=== PATIENT | male | born 1970 | race Caucasian/White ===

== ENCOUNTER 2024-08-03 15:28 | Emergency (ER) | payer SELFPAY ==
[2024-08-03] VITALS (22 sets, daily range): BP systolic 129–183; BP diastolic 96–143; PULSE 71–121; RESP 11–42; TEMP 36.4–36.6; O2SAT 86–100
--- NOTE | ~2024-08-03 | XR_ITS ---
XR chest 1V portable 08/03/2024 16:13 Indication: Shortness of breath Procedure: AP portable chest Comparison: No prior studies for comparison. Findings: Cardiomegaly. Pulmonary vascular indistinctness consistent with interstitial edema. No sign ificant effusion or pneumothorax. No acute osseous abnormality. Impression: 1: Mild interstitial edema. Reviewed, dictated and finalized at location B. ING CARRIER Impression: 1: Mild interstitial edema.
--- NOTE | ~2024-08-03 | CT_ITS ---
EXAMINATION: CTA chest PE protocol DATE: 08/03/2024 18:46 DATA REPORTING ANALYST INDICATION: Shortness of breath with elevated d-dimer TECHNIQUE: Computed tomographic angiography (CTA) of the chest was performed with 100 mL Omnipaque-35 0 intravenous contrast. The dose-length product was 571.75 mGy-cm. Maximum intensity projection 3D-re constructions of the aorta and other arteries were constructed by the technologist on a separate work station. COMPARISON: None. FINDINGS: No filling defects within the main or proximal pulmonary arteries. The thoracic aorta is of normal caliber (nonaneurysmal) and without calcified dissection. Moderate bilateral pleural effusions with adjacent compressive atelectasis. The heart is enlarged, without pericardial effusion. No significant mediastinal lymphadenopathy is identified. No acute fractures within the thoracic spine. No lytic or blastic lesions identified. IMPRESSION: No pulmonary embolus. No aortic dissection. Moderate bilateral pleural effusions with adjacent compressive atelectasis. Reviewed, dictated and finalized at location A. REPORTING ANALYST
--- NOTE | 2024-08-03 15:48 | ED.GENADULT ---
HPI - General Adult General Chief complaint: Shortness of Breath/Dyspnea Stated complaint: SENT BY PMD Time Seen by Provider: 08/03/24 15:48 Source: patient Mode of arrival: ambulatory Limitations: no limitations History of Present Illness HPI narrative: 54-year-old white male on complains of shortness of breath. he has been short of breath for the last 4-6 days it is worse today. He started having a cough today without any sputum says he is more short of breath when he is laying on his stomach or laying supine denies any chest pain he has had swelling was lower extremities according to significant other. Denies any rash or itching bleeding or bruising lumps or bumps dizziness or lightheadedness denies any back pain or abdominal pain. He said he used THC 2 days ago but denies any other illicit drug use drinks a few alcoholic drinks a week. Does not smoke. He is walking talking seeing and hearing without any weakness or numbness or any other complaints. Surgeries tendon surgery Allergies Darvocet Medications none Related Data Allergies Allergy/AdvReac Type Severity Reaction Status Date / Time acetaminophen (From Allergy Unknown Verified 08/03/24 15:46 Darvocet-N) propoxyphene (From Allergy Unknown Verified 08/03/24 15:46 Darvocet-N) Review of Systems Review of Systems: All systems reviewed & are unremarkable except as noted in HPI and below Exam Narrative: ?White male patient with no apparent distress.? Head normocephalic, atraumatic.? Eyes conjunctiva pink sclera nonicteric.? Extraocular movements are intact.? Ears externally normal.? Oropharynx is clear with moist mucous membranes without exudates.? Neck is supple nontender no lymphadenopathy.? Back is nontender.? Lungs are clear.? Heart is regular rate and rhythm without murmurs gallops or rubs.? Chest wall nontender. Abdomen is soft and nontender no hepatosplenomegaly or masses no CVA tenderness no abdominal bruits.? Extremities no cyanosis or clubbing. Plus one edema of his lower extremities.? Skin is warm and dry without rashes or lesions. His abdomen has a zrai complexion and blanches with pressure.? Neurological patient is alert and oriented x4.? Motor and sensory grossly intact.? Gait is normal. Course Vital Signs Vital signs: Vital Signs Pulse Rate 115 H 08/03/24 15:28 Oxygen Delivery Room Air 08/03/24 15:28 Temperature 36.6 C 08/03/24 15:37 Pulse Rate 97 08/03/24 19:33 Respiratory Rate 14 08/03/24 19:17 Blood Pressure 155/123 H 08/03/24 19:37 Pulse Oximetry 92 08/03/24 19:37 Oxygen Delivery Room Air 08/03/24 15:37 Medical Decision Making MDM Narrative Medical decision making narrative: ?Patient placed in room: Two with his significant other ? History and physical was performed. chest x-ray mild interstitial edema per radiologist Troponin CBC COVID flu and RSV lactic acid alcohol level were normal BNP 6426 BUN 25 osmolality 269 magnesium 1.7 AST 44 ALT 75 Osmo to 96 albumin 3.3 the rest of CMP was normal D-dimer was 1.5, urine drug screen positive for THC and amphetamines CT PE study per radiology showed: No pulmonary embolus. No aortic dissection. Moderate bilateral pleural effusions with adjacent compressive atelectasis. Independent Historian: significant other External Source Review: Differential Dx includes but not limited to: methamphetamine abuse pneumonia PE his heart failure anemia substance abuse alcoholism COVID flu RSV Medications were Reviewed: patient is not taking medicine the last year he is post be taking lisinopril for blood pressure but has seen Over year Medications given: Lasix 40 mg IV DuoNeb treatment. ( patient put out 3400 cc of urine )Patient feels much better. Says he is not short of breath he ambulated up and down the hallway fine his last blood pressure was 151/98 and heart rate was 97. Independently Interpreted by me: EKG shows sinus tachycardia at a rate of 106 right axis deviation nonspecific T-wave abnormality occasional PVC impression abnormal EKG as independently interpreted by me. Bedside ultrasound showed cardiac contractility is good no pericardial effusion. Shared decision Making: Evaluation was discussed all questions were asked and answered patient agreed with the plan. Social Situation Impacting Patients Care: methamphetamine abuse Discussed with Dr. HUYNH DIAGNOSIS: Congestive heart failure, methamphetamine abuse DISPOSITION : discharge home CONDITION AT DISCHARGE: stable Vital Signs Vital Signs: Vital Signs Pulse Rate 115 H 08/03/24 15:28 Oxygen Delivery Room Air 08/03/24 15:28 Temperature 36.6 C 08/03/24 15:37 Pulse Rate 97 08/03/24 19:33 Respiratory Rate 14 08/03/24 19:17 Blood Pressure 155/123 H 08/03/24 19:37 Pulse Oximetry 92 08/03/24 19:37 Oxygen Delivery Room Air 08/03/24 15:37 Lab Data 08/03/24 16:17 08/03/24 16:17 Labs: Lab Results 08/03/24 08/03/24 08/03/24 Range/Units 16:03 16:04 16:17 WBC 10.5 (4.8-10.8) K/mm3 RBC 5.51 (4.70-6.10) M/mm3 Hgb 15.9 (14.0-18.0) g/dL Hct 47.7 (40.0-54.0) % MCV 86.6 (78.0-102.0) fL MCH 28.9 (27.0-31.0) pg MCHC 33.3 (32-36) g/dL RDW 14.7 H (11.6-14.4) % Plt Count 285 (150-420) K/mm3 MPV 10.5 (8.7-11.0) fl PT 12.6 H (9.50-12.1) Seconds INR 1.2 APTT 26.5 (23.9-30.70) Sec D-Dimer 1.50 H* (0.19-0.50) mg/L Sodium 139 (136-145) mmol/L Potassium 3.6 (3.5-5.1) mmol/L Chloride 105 (98-108) mmol/L Carbon Dioxide 24 (21-32) mmol/L Anion Gap 10 (4-12) mmol/L BUN 25 H (7-18) mg/dL Creatinine 1.09 (0.70-1.30) mg/dL Estim Creat Clear Calc 75 ml/min Estimated GFR > 60 (59 - ) Glucose 162 H (70-99) mg/dL Calculated Osmolality 296 H (285-295) mOsm/kg Lactic Acid 1.1 (0.4-2.0) mmol/L Calcium 8.7 (8.5-10.1) mg/dL Magnesium 1.7 L (1.8-2.4) mg/dL Total Bilirubin 0.9 (0.00-1.00) mg/dL AST 44 H (15-37) U/L ALT 75 H (16-63) U/L Alkaline Phosphatase 77 (46-116) U/L Troponin I 48.8 (0.00-60.4) ng/L NT-Pro-B Natriuret Pep 6426 H (0-125) pg/mL Total Protein 6.7 (6.4-8.2) g/dL Albumin 3.3 L (3.4-5.0) g/dL Urine Color Yellow (Yellow) Urine Appearance Clear (Clear) Urine pH 6.0 (5.0-8.0) Ur Specific [place] 1.025 H (1.010-1.020) Urine Protein 3+ H (Negative) Urine Glucose (UA) Negative (Negative) Urine Ketones Negative (Negative) Ur Blood (Man) Negative (Negative) Urine Nitrate Negative (Negative) Urine Bilirubin Negative (Negative) Urine Urobilinogen 0.2 (0.2-1.0) mg/dL Leukocyte Esterase Rfl Negative (Negative) H[place]OL[place]O/UL Urine RBC 0-2 (0-2) /hpf Urine WBC 0-3 (0-3) /hpf Ur Squamous Epith Cells Rare (Few) /hpf Urine Bacteria Rare (None) /hpf Urine Opiates Screen Negative (Negative) Urine Methadone Screen Negative (Negative) Ur Barbiturates Screen Negative (Negative) Ur Phencyclidine Scrn Negative (Negative) Ur Amphetamine Screen Positive A (Negative) U Benzodiazepines Scrn Negative (Negative) Urine Cocaine Screen Negative (Negative) U Cannabinoids Screen Positive A (Negative) Ethyl Alcohol 3 (0-6) mg/dL Influenza A (RT-PCR) Negative (Negative) Influenza B (RT-PCR) Negative (Negative) RSV (RT-PCR) Negative (Negative) SARS-CoV-2 RNA (RT-PCR) Negative (Negative) 08/03/24 Range/Units 18:38 WBC (4.8-10.8) K/mm3 RBC (4.70-6.10) M/mm3 Hgb (14.0-18.0) g/dL Hct (40.0-54.0) % MCV (78.0-102.0) fL MCH (27.0-31.0) pg MCHC (32-36) g/dL RDW (11.6-14.4) % Plt Count (150-420) K/mm3 MPV (8.7-11.0) fl PT (9.50-12.1) Seconds INR APTT (23.9-30.70) Sec D-Dimer (0.19-0.50) mg/L Sodium (136-145) mmol/L Potassium (3.5-5.1) mmol/L Chloride (98-108) mmol/L Carbon Dioxide (21-32) mmol/L Anion Gap (4-12) mmol/L BUN (7-18) mg/dL Creatinine (0.70-1.30) mg/dL Estim Creat Clear Calc ml/min Estimated GFR (59 - ) Glucose (70-99) mg/dL Calculated Osmolality (285-295) mOsm/kg Lactic Acid (0.4-2.0) mmol/L Calcium (8.5-10.1) mg/dL Magnesium (1.8-2.4) mg/dL Total Bilirubin (0.00-1.00) mg/dL AST (15-37) U/L ALT (16-63) U/L Alkaline Phosphatase (46-116) U/L Troponin I 45.9 (0.00-60.4) ng/L NT-Pro-B Natriuret Pep (0-125) pg/mL Total Protein (6.4-8.2) g/dL Albumin (3.4-5.0) g/dL Urine Color (Yellow) Urine Appearance (Clear) Urine pH (5.0-8.0) Ur Specific [place] (1.010-1.020) Urine Protein (Negative) Urine Glucose (UA) (Negative) Urine Ketones (Negative) Ur Blood (Man) (Negative) Urine Nitrate (Negative) Urine Bilirubin (Negative) Urine Urobilinogen (0.2-1.0) mg/dL Leukocyte Esterase Rfl (Negative) HIPOLITO/UL Urine RBC (0-2) /hpf Urine WBC (0-3) /hpf Ur Squamous Epith Cells (Few) /hpf Urine Bacteria (None) /hpf Urine Opiates Screen (Negative) Urine Methadone Screen (Negative) Ur Barbiturates Screen (Negative) Ur Phencyclidine Scrn (Negative) Ur Amphetamine Screen (Negative) U Benzodiazepines Scrn (Negative) Urine Cocaine Screen (Negative) U Cannabinoids Screen (Negative) Ethyl Alcohol (0-6) mg/dL Influenza A (RT-PCR) (Negative) Influenza B (RT-PCR) (Negative) RSV (RT-PCR) (Negative) SARS-CoV-2 RNA (RT-PCR) (Negative) Discharge Plan Discharge Clinical Impression: Methamphetamine abuse, Hypertension, uncontrolled Congestive heart failure Qualifiers: Heart failure type: unspecified Heart failure chronicity: unspecified Qualified Code(s): I50.9 - Heart failure, unspecified Patient Disposition: Home, Self-Care Condition: Stable Instructions: Heart Failure (ED), Methamphetamine Use Disorder (ED) Additional Instructions: stop using Methamphetamine. Follow-up with your primary care provider tomorrow. Return if you get worse or develops any new symptoms. Avoid salt and salty foods. Take Lasix 20 mg daily and K-Dur 20 mEq daily follow-up with your primary care provider in the next 1-7 days. Return if you get worse or develops any new symptoms weigh yourself daily. Patient Language: Surinamese Prescriptions: New furosemide [Lasix] 20 mg tablet 20 mg PO DAILY Qty: 7 0RF potassium chloride 20 mEq tablet,ER particles/crystals 20 meq PO DAILY Qty: 7 0RF Follow-up/Referrals: Ada,MD Donnie [Primary Care Provider] - Time of Disposition: 19:56
--- NOTE | 2024-08-03 15:55 | ECG_ITS ---
Test Date: 2024-08-03 15:51:41 Measurements Intervals [place] Rate: 106 P: 65 CO: 152 QRS: 92 QRSD: 97 T: 86 QT: 414 QTc: 551 Interpretive Statements SINUS TACHYCARDIA BORDERLINE RIGHT AXIS DEVIATION [QRS AXIS > 90] NONSPECIFIC T-WAVE ABNORMALITY No previous ECG available for comparison Electronically Signed On 08-03-2024 17:45:21 SECURITY SOFTWARE ENGINEER by Audelia Lowery M.D.
[2024-08-03 16:22] LABS: Hematocrit 47.7 % (40.0-54.0); Hemoglobin 15.9 g/dL (14.0-18.0); Mean Corpuscular HGB Conc 33.3 g/dL (32-36); Mean Corpuscular Hemoglobin 28.9 pg (27.0-31.0); Mean Corpuscular Volume 86.6 fL (78.0-102.0); Mean Platelet Volume 10.5 fl (8.7-11.0); Platelet Count Result 285 K/mm3 (150-420); Red Blood Count 5.51 M/mm3 (4.70-6.10); Red Cell Distribution Width 14.7 % (11.6-14.4); White Blood Count 10.5 K/mm3 (4.8-10.8)
[2024-08-03 16:37] LABS: Add Urine Microscopic? YES; Appearance Urine Clear (Clear); Bilirubin Urine Negative (Negative); Blood Urine Negative (Negative); Color Urine Yellow (Yellow); Glucose Urine UA Negative (Negative); Ketones Urine Negative (Negative); Leukocyte Esterase Ur Negative LEU/UL (Negative); Nitrate Urine Negative (Negative); Protein Urine 3+ (Negative); Specific Grav Ur 1.025 (1.010-1.020); Urobilinogen Urine 0.2 mg/dL (0.2-1.0)
[2024-08-03 16:39] LABS: INR 1.2; Partial Thromboplastin Time 26.5 Sec (23.9-30.70); Prothrombin Time 12.6 Seconds (9.50-12.1)
[2024-08-03 16:41] LABS: Lactic Acid Reflex 1.1 mmol/L (0.4-2.0)
[2024-08-03] MEDS: FUROSEMIDE INJ 40 MG/4 ML VIAL IV PUSH (16:46)
[2024-08-03 16:47] LABS: Alanine Aminotransferase 75 U/L (16-63); Albumin Level 3.3 g/dL (3.4-5.0); Alkaline Phosphatase 77 U/L (46-116); Anion Gap 10 mmol/L (4-12); Aspartate Amino Transferase 44 U/L (15-37); Bilirubin,Total 0.9 mg/dL (0.00-1.00); Blood Urea Nitrogen 25 mg/dL (7-18); Calcium 8.7 mg/dL (8.5-10.1); Carbon Dioxide 24 mmol/L (21-32); Chloride 105 mmol/L (98-108); Estimated CRCL calculation 75 ml/min; Estimated Glomerular Filt Rate > 60; Ethanol 3 mg/dL (0-6); Glucose 162 mg/dL (70-99); Osmolality Calculated 296 mOsm/kg (285-295); Potassium 3.6 mmol/L (3.5-5.1); Sodium 139 mmol/L (136-145); Total Protein 6.7 g/dL (6.4-8.2)
[2024-08-03 16:48] LABS: Bacteria Urine Rare /hpf; RBC Urine 0-2 /hpf (0-2); Squamous Epithelial Cell Urine Rare /hpf (Few); WBC Urine 0-3 /hpf (0-3)
[2024-08-03 16:48] LABS: Amphetamine Screen Urine Positive (Negative); Barbiturate Screen Urine Negative (Negative); Benzodiazepines Screen Urine Negative (Negative); Cannabinoid Screen Urine Positive (Negative); Cocaine Screen Urine Negative (Negative); Methadone Screen Urine Negative (Negative); Opiate Screen Urine Negative (Negative); Phencyclidine Screen Urine Negative (Negative)
[2024-08-03 16:52] LABS: Magnesium 1.7 mg/dL (1.8-2.4); Troponin I 48.8 ng/L (0.00-60.4)
[2024-08-03 16:53] LABS: NT Pro B Type Natriuretic Pept 6426 pg/mL (0-125)
[2024-08-03 17:00] LABS: SARS-CoV-2 RNA PCR Negative (Negative)
[2024-08-03 17:03] LABS: Influenza A QL RT-PCR Negative (Negative); Influenza B QL RT-PCR Negative (Negative); RSV RNA, RT-PCR Negative (Negative)
[2024-08-03] MEDS: IPRATROPIUM 0.5 MG/ALBUTEROL SULFATE 2.5 MG AMPUL.NEB 3 ML INHALATION (17:48)
--- NOTE | 2024-08-03 18:00 | PC.NURSE ---
PT HAS RETURNED FROM CT AND TOLERATED A BREATHING TX WELL. SIG OTHER AT BEDSIDE. PT IS UP TO BEDSIDE USING URINAL AT THIS TIME. PT CONTINUES TO BE EXERTIONALLY SOB. PT IS AWAITING RESULTS AT THIS TIME. WILL CONTINUE TO MONITOR.
--- NOTE | 2024-08-03 18:25 | PC.NURSE ---
ERP AT BEDSIDE. PT IS TO HAVE REPEAT TROPONIN DRAWN. PT IS AWAITING CT RESULTS. SIG OTHER AT BEDSIDE. ERP IS AWARE OF VS, NO NEW ORDERS AT THIS TIME. WILL CONTINUE TO MONITOR.
[2024-08-03 18:58] LABS: Troponin I 45.9 ng/L (0.00-60.4)
--- NOTE | 2024-08-03 19:50 | PC.NURSE ---
ERP aware of blood pressure. No new orders at this time.
== END 2024-08-03 20:10 | disposition home or self-care (01) ==
PROVIDERS: Emergency Provider Emergency Medicine; PCP Family Medicine
DX: F15.10 Other stimulant abuse, uncomplicated (principal); I11.0 Hypertensive heart disease with heart failure; I50.9 Heart failure, unspecified; Z20.822 Contact with and (suspected) exposure to COVID-19
CPT/HCPCS: 36415; 71045; 71275; 80053; 80307; 81001; 82077; 83605; 83735; 83880; 84484; 85027; 85380; 85610; 85730; 87637; 93005; 96374; 99284; J1940; Q9967

== ENCOUNTER 2024-08-29 23:50 | Emergency (ER) | payer SELFPAY ==
--- NOTE | ~2024-08-29 | CT_ITS ---
Clinical Indication: Shortness of breath CT Scan of the Chest with Contrast: Technique: Contiguous sections were acquired throughout the chest after intravenous administration of 100 cc of Omnipaque 350. Dose reduction technique was used on this scan by utilizing automated expos ure control and iterative reconstruction technique. The dose-length product (DLP) was 754.46 mGy-cm. COMPARISON: 08/03/2024 Findings: There is no evidence of any significant mediastinal, hilar or axillary lymphadenopathy. There is no f illing defect in the pulmonary arterial tree to suggest pulmonary embolus. There is no evidence of ao rtic aneurysm. No pericardial effusion. Moderate bilateral pleural effusions are present, right greater than left. Probable minimal interstit ial pulmonary edema. Images through the upper abdomen reveal no abnormalities. Impression: No evidence of pulmonary embolus, aortic dissection, or aortic aneurysm. Moderate bilateral pleural effusions with minimal interstitial edema. Reviewed, dictated and finalized at [facility]. [facility] Impression: No evidence of pulmonary embolus, aortic dissection, or aortic aneurysm. Moderate bilateral pleural effusions with minimal interstitial edema.
--- NOTE | ~2024-08-29 | XR_ITS ---
Portable chest x-ray Comparison: 08/03/2024 Clinical History: Shortness of breath Findings: There are minimal pleural effusions and minimal central congestive change. Cardiomediasti nal silhouette is stable. Bones and soft tissues are unremarkable. Impression: Minimal pleural effusions and minimal central congestive change. Stable cardiomegaly. Reviewed, dictated and finalized at [facility]. 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 Stable cardiomegaly.
[2024-08-29 23:50] VITALS: PULSE 101; O2SAT 84
--- OUTSIDE RECORDS SUMMARY | 2024-08-29 23:52 | XMS_ITS | Clinical Summary ---
Author Organization [facility] Address [address] [place] [address]. [address] [address] Care Team Providers Care Senior Sales Operations Manager Name Role Phone Unavailable Primary Care Provider Unavailabl e Social History Tobacco Use Types Packs/Day Years Used Date Smoking Tobacco: Never Assessed Sex and Gender Information Value Date Recorded Sex Assigned at Not on file Legal Sex Male 8:57 PM CDT Gender Identity Not on file Sexual Orientation Not on file Plan of Treatment Health Maintenance Due Date Last Done Comments Colorectal Cancer Screening Colonoscopy (10 Years) 1968 Annual Physical 02/09/1971 Hepatitis C 02/09/1986 DTaP, Tdap and Td Vaccines ( 1 - Tdap) 02/09/1987 Hepatitis B Vaccines (1 of 3 - 19+ 3-dose series) 02/09/1987 Zoster Vaccines (1 of 2) 02/09/2018 COVID-19 Vaccine (2023-2 5 season) 2024 Influenza Adult (#1) 2024 Meningococcal B Vaccine Aged Out No l onger eligible based on patient's age to complete this topic Meningococcal Vaccine Aged Out No antonietta christopher eligible based on patient's age to complete this topic Pneumococcal Vaccine: Pediat rics (0 to 5 Years) and At-Risk Patients (6 to 64 Years) Aged Out No longer eligible b ased on patient's age to complete this topic RSV Immunizations Under 20 Months Aged Out No longer eligible based on patient's age to complete this topic
[2024-08-29 23:54] VITALS: PULSE 111; RESP 22; O2SAT 88
[2024-08-29 23:55] VITALS: BP 180/132; PULSE 112; RESP 18; TEMP 36.6; O2SAT 98
[2024-08-29 23:56] VITALS: O2SAT 83
--- NOTE | 2024-08-29 23:56 | ECG_ITS ---
Test Date: 2024-08-29 23:54:51 Measurements Intervals [place] Rate: 111 P: 58 MO: 162 QRS: 25 QRSD: 102 T: 112 QT: 359 QTc: 489 Interpretive Statements SINUS TACHYCARDIA POOR R WAVE PROGRESSION BORDERLINE T WAVE ABNORMALITY- INF/HIGH LAT LEADS BASELINE ARTIFACT- I, II, III, AVR, AVL, AVF ABNORMAL ECG Compared to ECG 08/03/2024 15:51:41 NO SIGNIFICANT CHANGE Electronically Signed On 08-30-2024 07:53:07 USER SUPPORT SPECIALIST by Austin Awad D.O.
--- NOTE | 2024-08-29 23:58 | ED.SOB ---
HPI - SOB/Dyspnea General Chief Complaint: Shortness of Breath/Dyspnea Stated Complaint: shortness of breath Time Seen by Provider: 08/29/24 23:55 Source: patient and family Mode of arrival: ambulatory Limitations: no limitations History of Present Illness HPI Narrative: Patient is a 54-year-old male with shortness of breath. He has been progressively getting worse over the past few days. He was in the ER per his history a few weeks ago and had a workup and was discharged with Lasix and potassium. No chest pain. History of methamphetamine abuse. MD elicited complaint: shortness of breath Pertinent past history: other ( Lasix use?) Onset (ago): day(s) (3) Context: recent illness and other ( Patient getting progressively worse short of breath over the past few days) Timing: constant and progressively worsening Severity: similar to previous episodes Exacerbating factors: exertion Relieving factors: nothing Known history of: other ( negative) Associated symptoms: other ( red skin changes has happened in the past also with shortness of breath) Treatment prior to arrival: diuretics Related Data Home oxygen amount: none Allergies Allergy/AdvReac Type Severity Reaction Status Date / Time acetaminophen (From Allergy Unknown Verified 08/03/24 15:46 Darvocet-N) propoxyphene (From Allergy Unknown Verified 08/03/24 15:46 Darvocet-N) Review of Systems Review of Systems: All systems reviewed & are unremarkable except as noted in HPI and below Constitutional: Constitutional: Reports no additional constitutional complaints Eyes: Eyes: Reports no additional eye complaints ENT: Reports system reviewed and no additional complaints, except as documented Cardiovascular: Cardiovascular: Reports no additional cardiovascular complaints Respiratory: Respiratory: Reports no additional respiratory complaints Gastrointestinal: Gastrointestinal: Reports no additional gastrointestinal complaints Genitourinary: Genitourinary: Reports no additional male genitourinary complaints Musculoskeletal: Musculoskeletal: Reports no additional musculoskeletal complaints Integumentary/Breasts: Skin/Breast: Reports system reviewed and no additional complaints, except as docu Neurologic: Reports system reviewed and no additional complaints, except as documented Psychiatric: Psychiatric: Reports no additional psychiatric complaints Endocrine: Endocrine: Reports no additional endocrine complaints Hematologic/Lymphatic: Hematologic/Lymphatic: Reports no additional hematologic/lymphatic complaints Allergic/Immunologic: Allergic/Immunologic: Reports no additional allergic/immunologic complaints Exam Const: General: diaphoretic and ill appearing Nutritional Appearance: well nourished Orientation/consciousness: patient oriented x3 Limitations: no limitations HENMT: Head: normal to inspection Ears: external ears normal Face/Nose/Sinus: Normal external nose present Eyes: Conjunctivae: conjunctivae normal Pupils: Equal, round and reactive pupils present EOM: EOMs intact bilaterally Neck: Neck: normal visual inspection Chest: Chest palpation & inspection: normal inspection of the chest Resp: Effort & Inspection: abnormal respiratory effort, labored, no retractions, tachypneic and no use of accessory muscles Auscultation: not clear to auscultation bilaterally, no crackles, rales, rhonchi, no wheezes, breath sounds present and diminished lung sounds Cardio: Rate: tachycardic Rhythm: regular rhythm Heart sounds: no murmurs GI: Inspection: non-distended GI Palp: Yes Soft to palpation and No Tenderness to palpation present (GI) Auscultation: normal bowel sounds : General: Yes bladder normal to palpation Back/Spine/Pelvis: Back: no CVA tenderness Skin: General skin exam: normal color Rashes: no rashes Wounds: no wounds Neuro: General: patient oriented x3 Cranial nerves: Yes Nystagmus not present Speech: normal speech Extrem: General: normal to inspection Psych: Mental Status: mental status grossly normal Affect: normal affect Attitude: cooperative Course Vital Signs Vital signs: Vital Signs Pulse Rate 101 H 08/29/24 23:50 Pulse Oximetry 84 L 08/29/24 23:50 Oxygen Delivery Room Air 08/29/24 23:50 Temperature 36.6 C 08/29/24 23:55 Pulse Rate 92 08/30/24 02:10 Respiratory Rate 18 08/29/24 23:55 Blood Pressure 180/132 H 08/29/24 23:55 Pulse Oximetry 83 L 08/29/24 23:56 Oxygen Delivery Room Air 08/29/24 23:56 MDM - SOB/Dyspnea MDM Narrative Medical decision making narrative: patient is a 54-year-old male with no major medical history is here with acute shortness of breath. We will do a large workup and look for many diagnosis. Supportive care. Final diagnosis CHF exacerbation as a new diagnosis of CHF at this time. He also has a pneumonia process. Sepsis pneumonia. Lab Data Attestation: I reviewed the patient's lab results. 08/29/24 23:57 08/29/24 23:57 Labs: Lab Results 08/29/24 08/29/24 Range/Units 23:57 23:58 WBC 14.0 H (4.8-10.8) K/mm3 RBC 5.59 (4.70-6.10) M/mm3 Hgb 15.8 (14.0-18.0) g/dL Hct 49.4 (40.0-54.0) % MCV 88.4 (78.0-102.0) fL MCH 28.3 (27.0-31.0) pg MCHC 32.0 (32-36) g/dL RDW 15.4 H (11.6-14.4) % Plt Count 286 (150-420) K/mm3 MPV 10.8 (8.7-11.0) fl Immature Gran % (Auto) 0.4 H (0.0-0.0) % Neut % (Auto) 82.4 H (50.0-70.0) % Lymph % (Auto) 8.5 L (18.0-42.0) % [place] % (Auto) 6.9 (2.0-11.0) % Eos % (Auto) 1.5 (1.0-6.0) % Baso % (Auto) 0.3 (0.0-1.0) % Lymph # (Auto) 1.19 (1.10-4.50) K/mm3 [place] # (Auto) 0.97 H (0.10-0.90) K/mm3 Eos # (Auto) 0.21 (0.02-0.50) K/mm3 Baso # (Auto) 0.04 (0.00-0.10) K/mm3 Abs Immat Gran (auto) 0.06 H (0.00-0.00) K/mm3 Absolute Neuts (auto) 11.49 H (1.70-7.20) K/mm3 Absolute Nucleated RBC 0.00 (0.00-0.00) K/mm3 Nucleated RBC % 0.0 (0-0.0) % PT 11.9 (9.50-12.1) Seconds INR 1.1 APTT 25.4 (23.9-30.70) Sec D-Dimer 2.10 H* (0.19-0.50) mg/L Sodium 142 (136-145) mmol/L Potassium 3.9 (3.5-5.1) mmol/L Chloride 105 (98-108) mmol/L Carbon Dioxide 27 (21-32) mmol/L Anion Gap 10 (4-12) mmol/L BUN 16 (7-18) mg/dL Creatinine 1.12 (0.70-1.30) mg/dL Estim Creat Clear Calc 75 ml/min Estimated GFR > 60 (59 - ) Glucose 103 H (70-99) mg/dL Calculated Osmolality 295 (285-295) mOsm/kg Lactic Acid 1.9 (0.4-2.0) mmol/L Calcium 8.4 L (8.5-10.1) mg/dL Magnesium 1.6 L (1.8-2.4) mg/dL Total Bilirubin 0.8 (0.00-1.00) mg/dL AST 73 H (15-37) U/L ALT 117 H (16-63) U/L Alkaline Phosphatase 98 (46-116) U/L Troponin I 72.8 H* (0.00-60.4) ng/L NT-Pro-B Natriuret Pep 8093 H (0-125) pg/mL Total Protein 6.8 (6.4-8.2) g/dL Albumin 3.4 (3.4-5.0) g/dL Influenza A (RT-PCR) Negative (Negative) Influenza B (RT-PCR) Negative (Negative) RSV (RT-PCR) Negative (Negative) SARS-CoV-2 RNA (RT-PCR) Negative (Negative) ABG Data ABG results: 08/30/24 00:54 Puncture Site Right radial ABG pH 7.43 ABG pCO2 35.4 ABG pO2 78.6 L ABG PO2/FiO2 Ratio Not Reportable ABG HCO3 23.1 ABG O2 Saturation 94.9 L ABG O2 Content 20.5 ABG Base Excess -0.5 L A-a Gradient Not Reportable Oxyhemoglobin 94.1 O2 Delivery Device Room air O2 Liters/Min 0.0 Imaging Data Attestation: I personally reviewed and interpreted this imaging study as follows: Radiologist's impression: Chest x-ray shows pulmonary edema and bilateral pleural effusions per my read CTA of the chest was negative for PE and showed CHF exacerbation with likely superimposed pneumonia ECG Data EKG #1: Attestation: I personally reviewed and interpreted this ECG as follows: ECG completion date: 08/30/24 ECG completion time: 00:04 EKG Interpretation: tachycardia, sinus rhythm, no ectopy, non-specific ST changes, normal QRS, normal QT and NL axis Critical Care Time Critical Care Time Critical Care Time: Yes Total Critical Care Time: 45 Discharge Plan Discharge Clinical Impression: Sepsis due to pneumonia, Elevated troponin Acute exacerbation of CHF (congestive heart failure) Qualifiers: Heart failure type: unspecified Qualified Code(s): I50.9 - Heart failure, unspecified Patient Disposition: Acute Care Hospital Condition: Serious Patient Language: Japanese Prescriptions: No Action furosemide [Lasix] 20 mg tablet 20 mg PO DAILY Qty: 7 0RF potassium chloride 20 mEq tablet,ER particles/crystals 20 meq PO DAILY Qty: 7 0RF Follow-up/Referrals: Damian,AMALIA Varma [Primary Care Provider] - Time of Disposition: 03:34
[2024-08-30] VITALS (57 sets, daily range): BP systolic 102–164; BP diastolic 65–143; PULSE 82–112; RESP 14–27; TEMP 36.7; O2SAT 88–100
[2024-08-30 00:17] LABS: Basophils Absolute Auto 0.04 K/mm3 (0.00-0.10); Basophils Percent Auto 0.3 % (0.0-1.0); Eosinophils Absolute Auto 0.21 K/mm3 (0.02-0.50); Eosinophils Percent Auto 1.5 % (1.0-6.0); Hematocrit 49.4 % (40.0-54.0); Hemoglobin 15.8 g/dL (14.0-18.0); Immature Granulocyte Absolute 0.06 K/mm3 (0.00-0.00); Immature Granulocyte Percent A 0.4 % (0.0-0.0); Lymphocytes Absolute Auto 1.19 K/mm3 (1.10-4.50); Lymphocytes Percent Auto 8.5 % (18.0-42.0); Mean Corpuscular Hemoglobin 28.3 pg (27.0-31.0); Mean Corpuscular Volume 88.4 fL (78.0-102.0); Mean Platelet Volume 10.8 fl (8.7-11.0); Monocytes Absolute Auto 0.97 K/mm3 (0.10-0.90); Monocytes Percent Auto 6.9 % (2.0-11.0); Neutrophils Absolute Auto 11.49 K/mm3 (1.70-7.20); Neutrophils Percent Auto 82.4 % (50.0-70.0); Platelet Count Result 286 K/mm3 (150-420); Red Blood Count 5.59 M/mm3 (4.70-6.10); Red Cell Distribution Width 15.4 % (11.6-14.4)
[2024-08-30 00:30] LABS: INR 1.1; Partial Thromboplastin Time 25.4 Sec (23.9-30.70); Prothrombin Time 11.9 Seconds (9.50-12.1)
[2024-08-30 00:38] LABS: Alanine Aminotransferase 117 U/L (16-63); Albumin Level 3.4 g/dL (3.4-5.0); Alkaline Phosphatase 98 U/L (46-116); Anion Gap 10 mmol/L (4-12); Aspartate Amino Transferase 73 U/L (15-37); Bilirubin,Total 0.8 mg/dL (0.00-1.00); Blood Urea Nitrogen 16 mg/dL (7-18); Calcium 8.4 mg/dL (8.5-10.1); Carbon Dioxide 27 mmol/L (21-32); Chloride 105 mmol/L (98-108); Estimated CRCL calculation 75 ml/min; Estimated Glomerular Filt Rate > 60; Glucose 103 mg/dL (70-99); Magnesium 1.6 mg/dL (1.8-2.4); NT Pro B Type Natriuretic Pept 8093 pg/mL (0-125); Osmolality Calculated 295 mOsm/kg (285-295); Potassium 3.9 mmol/L (3.5-5.1); Sodium 142 mmol/L (136-145); Total Protein 6.8 g/dL (6.4-8.2)
[2024-08-30 00:40] LABS: SARS-CoV-2 RNA PCR Negative (Negative)
[2024-08-30 00:43] LABS: Lactic Acid Reflex 1.9 mmol/L (0.4-2.0)
[2024-08-30] MEDS: FUROSEMIDE INJ 20 MG/2 ML VIAL IV PUSH (00:49)
[2024-08-30 01:05] LABS: Influenza A QL RT-PCR Negative (Negative); Influenza B QL RT-PCR Negative (Negative); RSV RNA, RT-PCR Negative (Negative)
[2024-08-30 01:06] LABS: Troponin I 72.8 ng/L (0.00-60.4)
[2024-08-30 01:16] LABS: Base Excess ABG -0.5 mmol/L (0-2); HCO3 ABG 23.1 mmol/L (23-29); Oxygen Content ABG 20.5 %vol (16.0-22.0); Oxygen Saturation ABG 94.9 % (95-97); Oxyhemoglobin 94.1 % (94-100); PCO2 ABG 35.4 mmHg (35-45); PO2 ABG 78.6 mmHg (80-90); pH ABG 7.43 (7.35-7.45)
[2024-08-30 02:15] LABS: Device ROOM AIR; Modified Allen's Test Pass; Site Drawn RIGHT RADIAL
[2024-08-30] MEDS: levoFLOXacin 500 MG/D5W 100 ML 500 MG/100 ML BAG 100 MG IVPB (03:10)
--- NOTE | 2024-08-30 04:57 | PC.NURSE ---
this RN spoke with patient extensively on plan of care and transfer to [facility] for cardiology consult. Patient agreeable to transfer at this time.
--- NOTE | 2024-08-30 05:06 | PC.NURSE ---
Patient's girlfriend, Mary Santizo, would like to be notified when patient is being moved and where he will transfer to. [phone], ([facility]wife [facility] birth center owner of the phone number is Jenn).
[2024-08-30 05:48] LABS: Troponin I 62.9 ng/L (0.00-60.4)
[2024-08-30] MEDS: MAGNESIUM SULF 2 GM/WATER 50ML 2 GM/50 ML BAG IVPB (08:20)
--- NOTE | 2024-08-30 08:26 | PC.NURSE ---
PT IS SITTING UP ON STRETCHER EATING BREAKFAST AT THIS TIME. PT REPORTS HE IS FEELING BETTER AND WAS ABLE TO GET SOME REST. PT IS TO BE MOVED ONTO HOSPITAL BED AFTER FINISHING BREAKFAST. PT IS AWAITING ROOM ASSIGNMENT FOR TRANSFER TO EITHER [facility] OR [facility]. PT DENIES ANY NEEDS OR COMPLAINTS. WILL CONTINUE TO MONITOR.
--- NOTE | 2024-09-01 15:35 | PC.NURSE ---
preliminary blood culture, no growth
== END 2024-08-30 09:41 | disposition short-term general hospital (02) ==
PROVIDERS: Emergency Medicine; Emergency Provider Internal Medicine Critical Care Medicine; PCP Physician Assistant
DX: A41.89 Other specified sepsis (principal); J18.9 Pneumonia, unspecified organism; R79.89 Other specified abnormal findings of blood chemistry; I50.9 Heart failure, unspecified; Z20.822 Contact with and (suspected) exposure to COVID-19
CPT/HCPCS: 36415; 36600; 71045; 71275; 80053; 82805; 83605; 83735; 83880; 84484; 85018; 85025; 85380; 85610; 85730; 87040; 87637; 93005; 96365; 96366; 96367; 96375; 99285; J1940; J1956; J3475; Q9967

== ENCOUNTER 2024-08-30 10:17 | Inpatient (IN) | payer SELFPAY ==
[2024-08-30] VITALS (11 sets, daily range): BP systolic 107–136; BP diastolic 81–102; PULSE 82–111; RESP 16–22; TEMP 36.4–36.6; O2SAT 93–96; BMI 33.2
--- NOTE | 2024-08-30 10:48 | PC.NURSE ---
Patient arrived from [place] via ambulance. Patient A&O. Telemetry and pulse ox applied. Dr. JOHNSON notified.
--- OUTSIDE RECORDS SUMMARY | 2024-08-30 11:14 | XMS_ITS | Clinical Summary ---
Author Organization [facility] Address [address] [place] [address]. [address] [address] Care Team Providers Care Mushroom Packer Name Role Phone Unavailable Primary Care Provider [...]
[2024-08-30 11:33] LABS: Hematocrit 42.7 % (42.0-52.0); Hemoglobin 14.1 g/dL (14.0-18.0); Mean Corpuscular Hemoglobin 29.1 pg (26-34); Mean Corpuscular Volume 88.2 fl (80-100); Mean Platelet Volume 10.6 fl (7.4-10.4); Platelet Count Result 240 k/mm3 (150-375); Red Blood Count 4.84 M/mm3 (4.6-6.20); Red Cell Distribution Width 15.4 % (11.5-14.5); White Blood Count 10.8 K/mm3 (4.5-10.0)
[2024-08-30 11:41] LABS: Anion Gap 5 mmol/L (4-12); Blood Urea Nitrogen 16 mg/dL (9-20); Calcium 8.3 mg/dL (8.4-10.2); Carbon Dioxide 28 mmol/L (22-30); Chloride 105 mmol/L (98-107); Estimated CRCL calculation 99 ml/min; Estimated Glomerular Filt Rate > 60; Glucose 140 mg/dL (65-110); Sodium 138 mmol/L (137-145)
[2024-08-30 11:53] LABS: Troponin I 0.027 ng/mL (0.000-0.034)
[2024-08-30 14:51] LABS: Amphetamine Screen Urine Negative (Negative); Barbiturate Screen Urine Negative (Negative); Benzodiazepines Screen Urine Negative (Negative); Cannabinoid Screen Urine Negative (Negative); Cocaine Screen Urine Negative (Negative); Methadone Screen Urine Negative (Negative); Opiate Screen Urine Negative (Negative); Phencyclidine Screen Urine Negative (Negative)
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
[2024-08-30 16:22] LABS: Cholesterol 113 mg/dL (0-200); HDL Direct 36 mg/dL; Triglycerides 113 mg/dL (<150)
[2024-08-30 16:33] LABS: LDL Cholesterol Direct 66 mg/dL
[2024-08-30 16:53] LABS: Thyroid Stimulating Hormone Reflex 0.485 uIU/mL (0.465-4.68)
[2024-08-30] MEDS: FUROSEMIDE INJ 40 MG/4 ML VIAL IV PUSH (17:02)
[2024-08-30 17:07] LABS: Troponin I 0.024 ng/mL (0.000-0.034)
--- NOTE | 2024-08-30 17:13 | P.CONCA_ITS ---
Assessment and Plan Assessment and plan (1) Acute exacerbation of CHF (congestive heart failure): Qualifiers: Heart failure type: unspecified Qualified Code(s): I50.9 - Heart failure, unspecified Code(s): I50.9 - Heart failure, unspecified Status: Acute (2) HTN (hypertension): Code(s): I10 - Essential (primary) hypertension Status: Acute (3) Elevated troponin: Code(s): R79.89 - Other specified abnormal findings of blood chemistry Status: Acute Plan 54-year-old man with prior history of methamphetamine use presents with worsening shortness of breath Shortness of breath -likely secondary to acute decompensated heart failure -will obtain transthoracic echocardiogram to evaluate biventricular systolic function -Lasix 40 mg IV b.i.d. Hypertension -controlled on metoprolol succinate 50 mg p.o. daily Troponin elevation -most likely demand in setting of acute decompensated heart failure History of Present Illness History of Present Illness Consult date/time: 08/30/24 17:13 Requesting physician: Pedrito Gunderson MD Consult reason: shortness of breath Reason For Visit: New Onset CHF, Pneumonia, Elevated Troponins Narrative: 54-year-old man with prior history of methamphetamine use presents with worsening shortness of breath. Last month he was in emergency room with similar complaints and was discharged with diuretics. He felt much better after some IV diuretics however he tried to go a few days without any oral diuretics and quickly became short of breath. The shortness of breath had continued to worsen over the past month prompting him to come to the emergency room. He had continue to use meth last month. However he now has decided to quit. He does some weightlifting for 15-20 minutes at most without any chest discomfort. However he has been having exertional shortness of breath causing him to not be very physically active in the last week. Denies exertional chest pain and syncope. No significant orthopnea after IV diuretics. Does have lower extremity swelling. Review of Systems 2 Cardiovascular: Cardiovascular: Reports as per HPI Respiratory: Respiratory: Reports as per HPI [facility] Family History Family History (Updated 08/30/24 @ 10:48 by Aicha Caceres RN) Father Hypertension Father Myocardial infarction Mother Lymphoma Social History Social History Smoking status: Former smoker Additional smoking assessment comments: 1 pack per year Alcohol intake: current Drinks per week: 5 Substance use: current Substance use type: marijuana and methamphetamine Other substance usage details: not too often Do You Feel Safe in your Home?: Yes Lack of Transportation: No Lack of Food: Never True Current Housing: I Have Housing Concerned About Future Housing: No Difficulty Paying Gas/Electric Bills: No Difficulty Paying for Meds: No Currently Unemployed: No Education: Bachelor's Degree Difficulty w/ Childcare or Family Care: No Spiritual care concerns: No Meds Home Medications and Allergies Home Medications ?Medication ?Instructions ?Recorded ?Confirmed ?Type furosemide 20 mg tablet (Lasix) 20 mg PO DAILY #7 tabs 08/03/24 08/30/24 Rx potassium chloride 20 mEq 20 meq PO DAILY #7 tabs 08/03/24 08/30/24 Rx tablet,extended release(part/cryst) metoprolol succinate 50 mg 50 mg PO DAILY htn 08/30/24 08/30/24 History tablet,extended release 24 hr Allergies Allergy/AdvReac Type Severity Reaction Status Date / Time acetaminophen (From Allergy Mild Nausea and Verified 08/30/24 10:39 Darvocet-N) Vomiting propoxyphene (From Allergy Unknown Verified 08/30/24 04:29 Darvocet-N) Vital Signs Vital Signs - 24 hr 08/30/24 10:31 08/30/24 11:14 08/30/24 11:33 Temperature 36.6 C Pulse Rate 91 82 Respiratory Rate 22 H Blood Pressure 107/81 Pulse Oximetry 93 93 Oxygen Delivery Nasal Cannula Oxygen Flow Rate 2 08/30/24 12:00 08/30/24 12:05 08/30/24 14:00 Temperature 36.4 C L Pulse Rate 90 92 86 Respiratory Rate 20 Blood Pressure 136/102 H Pulse Oximetry 96 Oxygen Delivery Oxygen Flow Rate 08/30/24 15:39 Temperature 36.6 C Pulse Rate 91 Respiratory Rate 16 Blood Pressure 118/88 Pulse Oximetry 93 Oxygen Delivery Oxygen Flow Rate Exam 2 Const: General: comfortable HENMT: Mouth: Yes moist mucous membranes Eyes: EOM: EOMs intact bilaterally Neck: Neck: no JVD Resp: Effort & Inspection: normal respiratory effort Auscultation: rales and diminished lung sounds Cardio: Rate: regular rate Rhythm: regular rhythm GI: GI Palp: Yes Soft to palpation Extrem: General: edema Results Labs and Meds 08/30/24 11:26 08/30/24 11:26 Lab results: Cardiac Enzymes 08/30/24 08/30/24 Range/Units 11:26 16:32 Troponin I 0.027 0.024 (0.000-0.034) ng/mL Lipids 08/30/24 Range/Units 11:20 Triglycerides 113 (<150) mg/dL Cholesterol 113 (0-200) mg/dL CBC 08/30/24 Range/Units 11:26 WBC 10.8 H (4.5-10.0) K/mm3 RBC 4.84 (4.6-6.20) M/mm3 Hgb 14.1 (14.0-18.0) g/dL Hct 42.7 (42.0-52.0) % Plt Count 240 (150-375) k/mm3 Comprehensive Metabolic Panel 08/30/24 Range/Units 11:26 Sodium 138 (137-145) mmol/L Potassium 4.0 (3.4-5.0) mmol/L Chloride 105 (98-107) mmol/L Carbon Dioxide 28 (22-30) mmol/L BUN 16 (9-20) mg/dL Creatinine 0.83 (0.7-1.3) mg/dL Glucose 140 H (65-110) mg/dL Calcium 8.3 L (8.4-10.2) mg/dL Patient Weight 08/30/24 23:59 Weight 99.1 kg
[2024-08-30 17:27] LABS: Hemoglobin A1C 6.3 % (<5.7)
[2024-08-31] VITALS (16 sets, daily range): BP systolic 135–148; BP diastolic 65–97; PULSE 91–111; RESP 18–28; TEMP 36.3–36.8; O2SAT 90–97
--- NOTE | 2024-08-31 | ECHO_ITS ---
Patient Info Name: Dragan Santo Age: 54 years : 1970 Gender: Male Ht: 68 in Wt: 218 lbs BSA: 2.21 m2 HR: 96 bpm BP: 136 / 93 mmHg Heart Rhythm: Sinus Rhythm Technical Quality: Fair Exam Date: 08/31/2024 9:51 AM Exam Location: Echo Lab Patient Status: Inpatient Admit Date: 08/30/2024 Staff Ordering Physician: Pedrito Gunderson MD Public Address System Operator: Sam Rodriguez RDCS Attending Provider: Pedrito Gunderson MD Exam Type: CA echo dop color flow w con Study Info Indications - R/O CHF Complete two-dimensional, color flow and Doppler transthoracic echocardiogram is performed with contrast to opacify the left ventricle and to improve the deliniation of the left ventricle endocardial borders. Contrast/Agitated Saline Contrast/Ag. Saline: Definity Amount: 2.00 ml Existing IV Access: Yes Summary 1. Left ventricular chamber dimension is moderately enlarged. 2. Left ventricular systolic function is severely reduced, estimated at 25-30%. 3. Right ventricular chamber dimension is mildly enlarged. 4. Right ventricular systolic function is normal. 5. Left atrial chamber dimension is mildly enlarged. 6. Right atrial chamber dimension is mildly enlarged. 7. There is mild mitral valve regurgitation. Left Ventricle Left ventricular chamber dimension is moderately enlarged. Left ventricular systolic function is severely reduced, estimated at 25-30%. There is no increased left ventricular wall thickness. The left ventricular diastolic function is abnormal. Right Ventricle Right ventricular chamber dimension is mildly enlarged. Right ventricular systolic function is normal. Left Atria Left atrial chamber dimension is mildly enlarged. Right Atria Right atrial chamber dimension is mildly enlarged. Atrial Septum Intact interatrial septum visualized by color flow imaging. Aortic Valve The aortic valve is not well visualized. There is no aortic valve stenosis. There is no aortic valve regurgitation. Pulmonic Valve The pulmonic valve is not well visualized. There is no pulmonic regurgitation. Mitral Valve There is mild mitral valve regurgitation. Tricuspid Valve There is trace tricuspid valve regurgitation. Pericardium/Pleural The pericardium appears epicardial fat pad. There is no pericardial effusion. Inferior Vena Cava Normal inferior vena cava with >50% collapse upon inspiration consistent with normal right atrial pressure, 3 mmHg. Aorta The aortic root size at the sinus of Valsalva is normal. Left Ventricular Outflow Tract Name Value Normal LVOT 2D LVOT Diameter 1.91 cm LVOT Doppler LVOT Peak Gradient 3 mmHg LVOT Mean Gradient 1 mmHg LVOT VTI 16.99 cm LVOT VTI/AV VTI Ratio 0.83 LVOT Stroke Volume 48.53 ml LVOT CO 4.47 l/min LVOT CI 2.02 L/min/m2 Pulmonic Valve Name Value Normal RVOT Doppler RVOT Peak Gradient 2 mmHg PV Doppler PV Peak Gradient 4 mmHg Mitral Valve Name Value Normal MV Doppler MV Peak Gradient 5 mmHg MV Mean Gradient 3 mmHg MV Decel [place] 883.15 cm/s2 MV PHT 0 s MV Area (PHT) 6.63 cm2 4.00-5.00 MV Area (Cont Eq VTI) 1.94 cm2 MV Diastolic Function MV E Peak Velocity 101.05 cm/s MV Decel Time 0 s MV Annular TDI MV E/e' (Septal) 11.88 <=8.00 MV E/e' (Lateral) 9.95 <=8.00 MV E/e' (Average) 10.92 Tricuspid Valve Name Value Normal TV Regurgitation Doppler TR Peak Velocity 295.17 cm/s TR Peak Gradient 35 mmHg Estimated PAP/RSVP RA Pressure 3 mmHg <=5 PA Systolic Pressure 38 mmHg <36 RV Systolic Pressure 38 mmHg <36 Aorta Name Value Normal Ascending Aorta Ao Root Diameter (MM) 3.60 cm Ao Root Diam Index (MM) 1.63 cm/m2 Aortic Valve Name Value Normal AV Doppler AV Peak Velocity 131.11 cm/s AV Peak Gradient 5 mmHg AV Mean Gradient 3 mmHg AV VTI 20.35 cm AV Area (Cont Eq VTI) 2.39 cm2 >=3.00 AV Area (Cont Eq Raj) 2.17 cm2 AV Regurgitation 2D LVOT Area 2.86 cm2 Ventricles Name Value Normal LV Dimensions 2D/MM IVS Diastolic Thickness (2D) 1.20 cm 0.60-1.00 LVID Diastole (2D) 5.76 cm 4.20-5.80 LVIW Diastolic Thickness (2D) 1.45 cm 0.60-1.00 LVID Systole (2D) 4.89 cm 2.50-4.00 LVOT Diameter 1.91 cm LV Mass (2D Cubed) 337.58 g 88.00-224.00 LV Mass Index (2D Cubed) 0.02 g/cm2 0.00-0.01 Relative Wall Thickness (2D) 0.50 LV Fractional Shortening/Ejection Fraction 2D/MM LV Fractional Shortening (2D) 19 % 25-43 LV EF (2D Teicholz) 39 % 52-72 LV Diastolic Volume (4C MOD) 143.27 ml LV EF (4C MOD) 30 % LV Diastolic Volume (2C MOD) 109.77 ml LV EF (2C MOD) 21 % LV Diastolic Volume (BP MOD) 127.14 ml 62.00-150.00 LV Diastolic Volume Index (BP MOD) 0.06 l/m2 0.03-0.07 LV Systolic Volume (BP MOD) 96.14 ml 21.00-61.00 LV Systolic Volume Index (BP MOD) 0.04 l/m2 0.01-0.03 LV EF (BP MOD) 25 % 52-72 LV Diastolic Length (4C) 8.34 cm LV Systolic Length (4C) 7.56 cm LV Stroke Volume (4C MOD) 42.67 ml Atria Name Value Normal LA Dimensions LA Dimension (MM) 4.67 cm 3.00-4.10 LA Volume (4C A-L) 77.53 ml LA Volume (BP A-L) 73.40 ml RA Dimensions RA Area (4C) 26.73 cm2 <=18.00 Report Signatures
[2024-08-31 04:57] LABS: Hematocrit 42.4 % (42.0-52.0); Mean Corpuscular Hemoglobin 29.1 pg (26-34); Mean Corpuscular Volume 88.1 fl (80-100); Mean Platelet Volume 10.3 fl (7.4-10.4); Platelet Count Result 244 k/mm3 (150-375); Red Blood Count 4.81 M/mm3 (4.6-6.20); Red Cell Distribution Width 15.4 % (11.5-14.5); White Blood Count 10.8 K/mm3 (4.5-10.0)
[2024-08-31 05:06] LABS: Alanine Aminotransferase 89 U/L (6-50); Albumin Level 3.2 g/dL (3.5-5.1); Alkaline Phosphatase 83 U/L (38-126); Anion Gap 6 mmol/L (4-12); Aspartate Amino Transferase 67 U/L (17-59); Bilirubin,Total 0.8 mg/dL (0.2-1.3); Blood Urea Nitrogen 19 mg/dL (9-20); Calcium 8.3 mg/dL (8.4-10.2); Carbon Dioxide 30 mmol/L (22-30); Chloride 104 mmol/L (98-107); Estimated CRCL calculation 80 ml/min; Estimated Glomerular Filt Rate > 60; Glucose 83 mg/dL (65-110); Potassium 3.8 mmol/L (3.4-5.0); Sodium 140 mmol/L (137-145)
[2024-08-31] MEDS: FUROSEMIDE INJ 40 MG/4 ML VIAL IV PUSH ×2 (09:10→15:45)
[2024-08-31] MEDS: POTASSIUM CHLORIDE 20 MEQ ER TABLET PO (09:10)
[2024-08-31] MEDS: METOPROLOL SUCCINATE EXT REL 50 MG TABCR PO (09:10)
[2024-08-31] MEDS: PANTOPRAZOLE SODIUM IV 40 MG VIAL IV PUSH (09:11)
[2024-08-31] MEDS: ENOXAPARIN 40 MG/0.4 ML SYRINGE SUB-Q (09:11)
[2024-08-31] MEDS: PERFLUTREN LIPID MICROSPHERES 1.5 ML VIAL DILUTED TO 10 ML TOTAL VOLUME IV PUSH (10:50)
--- NOTE | 2024-08-31 10:55 | P.CONPL_ITS ---
Assessment and Plan Assessment and plan (1) Mold exposure: Code(s): Z77.120 - Contact with and (suspected) exposure to mold (toxic) Status: Acute Assessment and Plan: Twenty years ago the patient was exposed to a grain silo and developed wheezing and fever for 1 month and recovered. Since then he has occasional wheezing with exposure to dust and dirty environments. He has a flooded basement and is home is tested for mold and presented to the emergency room [id number] with evidence of fluid overload and responded to a DuoNeb in Lasix with 3.4 L out and said he felt back to normal. He was discharged on Lasix and takes this intermittently for shortness of breath and wheezing and says that when he takes his Lasix it helps him breathe better. One week ago as house tested positive for mold. It is difficult to tell if this patient has a mold hypersensitivity as there was also concurrent evidence of fluid overload. Currently has responded to IV Lasix and says he is much better. Plan: At this time I recommended the patient not return to the home that has mold. He tells me he has other living arrangements. Once he is adequately treated for fluid overload and once his fluid status is optimized he could then try to make repairs in his current house to eradicate the mold. At this time I do not believe the patient needs any inhaled medications. The patient should discontinue any additional injuries to his lungs such as smoking methamphetamines and marijuana. if the patient has continued respiratory issues despite optimization of his cardiac function he can be referred to the Pulmonary Clinic. Otherwise he needs no pulmonary follow-up at this time. Discussed with , will sign off, call with questions. (2) SOB (shortness of breath): Code(s): R06.02 - Shortness of breath Status: Acute Assessment and Plan: Patient with hypertension, previous ED visit on 08/03/2024 for shortness of breath, pedal edema, inability to lay flat with a BNP of 6426 and treated with 40 of Lasix and diuresed 3.4 L and said he was back to normal in left the ER. He is discharged on Lasix and takes this intermittently and he says this helps his breathing. Currently he presents with worsening shortness of breath, wheezing, worsening orthopnea, PND 1-2 times a night, increased nocturia and increased lower extremity edema with a BNP of 8093, CT scan of the chest with bilateral pleural effusions. Plan: Agree with management for fluid overload as directed by Cardiology and hospitalist teams. History of Present Illness History of Present Illness Consult date: 08/31/24 Chief complaint: New Onset CHF, Pneumonia, Elevated Troponins Narrative: 08/31/2024: This is a new pulmonary consult for mold exposure. 54-year-old man with a history of fluid overload, hypertension and substance use. patient had no respiratory issues as a child, through his adulthood, no history of asthma, no history of COPD, no history of pneumonias requiring hospitalization. 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 He made a complete recovery. 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 He has no respiratory limitations in his activities of daily living and said that he could walk an unlimited distance at the end of 2023. On approximately July 31 he notice that his basement had flooded for an unknown amount of time as his PET destroyed his secondary some pump. He tested his house at that time and it was positive for mold. He developed shortness of breath over the next 2 or 3 days and presented to an emergency department where he complained of a little bit of wheezing, a little cough, no phlegm, no blood, orthopnea, pedal edema. his BNP was 6426. His tox screen was positive for amphetamines and cannabis. CT angiogram of the chest showed moderate bilateral pleural effusions no pulmonary embolism, no focal consolidations and no interstitial lung disease. He was given a DuoNeb and Lasix 40 IV. He says the DuoNeb helped him breathe better. He urinated 3.4 L and said that he felt completely back to normal at that time. The next day he went back to the residence and he says that he noticed a small amount of wheezing and coughing. He was discharged on 20 of Lasix a day but took it sporadically. When he did take the Lasix it did make him urinate and it did help him breathe better. One week ago the patient retested his house from old and it is still positive. On 08/30/24 Presented to the emergency department. Over the last 3-4 days the patient states that his dyspnea on exertion has worsened such that he could barely walk across the room. He says that he had worsening orthopnea, increased nocturia, increased pedal edema. He had some wheezing, no fevers, he presented to an outside ED in respiratory distress mottled with tripoding. His room air saturations were 83% he had decreased breath sounds and positive edema. His white blood cell count was 14.2 his creatinine was 1.12, his BNP was 8093. his room air blood gas was 7.43/35/79. His COVID, influenza and RSV RT PCR studies were negative. His tox screen was negative. patient had a CT angiogram of the chest With no PE, bilateral pleural effusions, No focal consolidations and no evidence of interstitial lung disease. Patient was treated with IV Lasix. Patient smoked tobacco from age 13 to current at approximately 2 packs per year for a total of 0.2 pack years. Patient was exposed to secondhand smoke for the last 10 years until he told them to smoke outside in July of 2024. Patient smokes marijuana for the last 20 years at 4-5 inhalations approximately 5 days a week. 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 For the last 2-3 years he tells me he smokes this 1 time a week. Patient rehab house is and is exposed to dust, and he says the [facility] house is cause him to breathe heavy. 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 08/31/2024. Currently patient states he is much better. He says he is 90% back to normal regarding his breathing. He has a little bit of wheezing on forced expiration with a little cough but no phlegm her no blood production. DATA: Clinical Indication: Shortness of breath CT Scan of the Chest with Contrast: Technique: Contiguous sections were acquired throughout the chest after intravenous administration of 100 cc of Omnipaque 350. Dose reduction technique was used on this scan by utilizing automated exposure control and iterative reconstruction technique. The dose-length product (DLP) was 754.46 mGy-cm. COMPARISON: 08/03/2024 Findings: There is no evidence of any significant mediastinal, hilar or axillary lymphadenopathy. There is no filling defect in the pulmonary arterial tree to suggest pulmonary embolus. There is no evidence of aortic aneurysm. No pericardial effusion. Moderate bilateral pleural effusions are present, right greater than left. Probable minimal interstitial pulmonary edema. Images through the upper abdomen reveal no abnormalities. Impression: No evidence of pulmonary embolus, aortic dissection, or aortic aneurysm. Moderate bilateral pleural effusions with minimal interstitial edema. 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 The dose-length product was 571.75 mGy-cm. Maximum intensity projection 3D-reconstructions of the aorta and other arteries were constructed by the technologist on a separate workstation. COMPARISON: None. FINDINGS: No filling defects within the main or proximal pulmonary arteries. The thoracic aorta is of normal caliber (nonaneurysmal) and without calcified dissection. Moderate bilateral pleural effusions with adjacent compressive atelectasis. The heart is enlarged, without pericardial effusion. No significant mediastinal lymphadenopathy is identified. No acute fractures within the thoracic spine. No lytic or blastic lesions identified. IMPRESSION: No pulmonary embolus. No aortic dissection. Moderate bilateral pleural effusions with adjacent compressive atelectasis. Review of Systems 2 Constitutional: Constitutional: Reports no additional constitutional complaints Eyes: Eyes: Reports no additional eye complaints ENT: Reports system reviewed and no additional complaints, except as documented Cardiovascular: Cardiovascular: Reports no additional cardiovascular complaints Respiratory: Respiratory: Reports no additional respiratory complaints Gastrointestinal: Gastrointestinal: Reports no additional gastrointestinal complaints Musculoskeletal: Musculoskeletal: Reports no additional musculoskeletal complaints Neurologic: Reports system reviewed and no additional complaints, except as documented Psychiatric: Psychiatric: Reports no additional psychiatric complaints Endocrine: Endocrine: Reports no additional endocrine complaints Hematologic/Lymphatic: Hematologic/Lymphatic: Reports no additional hematologic/lymphatic complaints Allergic/Immunologic: Allergic/Immunologic: Reports no additional allergic/immunologic complaints [facility] Family History Family History (Updated 08/30/24 @ 10:48 by Aicha Caceres RN) Father Hypertension Father Myocardial infarction Mother Lymphoma Social History Social History Smoking status: Former smoker Additional smoking assessment comments: 1 pack per year Alcohol intake: current Drinks per week: 5 Substance use: current Substance use type: marijuana and methamphetamine Other substance usage details: not too often Do You Feel Safe in your Home?: Yes Lack of Transportation: No Lack of Food: Never True Current Housing: I Have Housing Concerned About Future Housing: No Difficulty Paying Gas/Electric Bills: No Difficulty Paying for Meds: No Currently Unemployed: No Education: Bachelor's Degree Difficulty w/ Childcare or Family Care: No Spiritual care concerns: No Meds Home Medications and Allergies Home Medications ?Medication ?Instructions ?Recorded ?Confirmed ?Type furosemide 20 mg tablet (Lasix) 20 mg PO DAILY #7 tabs 08/03/24 08/30/24 Rx potassium chloride 20 mEq 20 meq PO DAILY #7 tabs 08/03/24 08/30/24 Rx tablet,extended release(part/cryst) metoprolol succinate 50 mg 50 mg PO DAILY htn 08/30/24 08/30/24 History tablet,extended release 24 hr Allergies Allergy/AdvReac Type Severity Reaction Status Date / Time acetaminophen (From Allergy Mild Nausea and Verified 08/30/24 10:39 Darvocet-N) Vomiting propoxyphene (From Allergy Unknown Verified 08/30/24 04:29 Darvocet-N) Vital Signs Vital Signs - 24 hr 08/30/24 11:14 08/30/24 11:33 08/30/24 12:00 Temperature 36.4 C L Pulse Rate 82 90 Respiratory Rate 20 Blood Pressure 136/102 H Pulse Oximetry 93 96 Oxygen Delivery Nasal Cannula Oxygen Flow Rate 2 08/30/24 12:05 08/30/24 14:00 08/30/24 15:39 Temperature 36.6 C Pulse Rate 92 86 91 Respiratory Rate 16 Blood Pressure 118/88 Pulse Oximetry 93 Oxygen Delivery Oxygen Flow Rate 08/30/24 16:00 08/30/24 16:00 08/30/24 20:00 Temperature Pulse Rate 91 111 H Respiratory Rate Blood Pressure Pulse Oximetry 94 Oxygen Delivery Nasal Cannula Oxygen Flow Rate 2 08/30/24 20:00 08/30/24 20:11 08/30/24 22:00 Temperature 36.6 C Pulse Rate 107 H 105 H Respiratory Rate 18 Blood Pressure 124/96 H Pulse Oximetry 96 93 Oxygen Delivery Nasal Cannula Oxygen Flow Rate 2 08/31/24 00:00 08/31/24 00:00 08/31/24 00:40 Temperature 36.4 C Pulse Rate 93 93 Respiratory Rate 18 Blood Pressure 135/65 Pulse Oximetry 93 94 Oxygen Delivery Nasal Cannula Oxygen Flow Rate 1 08/31/24 02:00 08/31/24 04:00 08/31/24 04:00 Temperature Pulse Rate 94 94 Respiratory Rate Blood Pressure Pulse Oximetry 95 Oxygen Delivery Room Air Oxygen Flow Rate 08/31/24 05:03 08/31/24 06:00 08/31/24 07:41 Temperature 36.8 C 36.4 C L Pulse Rate 96 98 99 Respiratory Rate 20 20 Blood Pressure 136/93 H 146/95 H Pulse Oximetry 94 94 Oxygen Delivery Oxygen Flow Rate 08/31/24 09:10 Temperature Pulse Rate 107 H Respiratory Rate Blood Pressure Pulse Oximetry Oxygen Delivery Oxygen Flow Rate Exam 2 Const: General: cooperative, healthy appearing and comfortable O rientation/consciousness: oriented to person, oriented to place and oriented to time HENMT: Head: normal to inspection Ears: hearing grossly normal bilaterally Eyes: General: appearance normal, both eyes and all related structures Neck: Neck: normal visual inspection Chest: Chest palpation & inspection: normal inspection of the chest Resp: Effort & Inspection: normal respiratory effort and able to speak in complete sentences Auscultation: no crackles, no rales, no rhonchi, no wheezes and diminished lung sounds ( bases) Other: Few wheezes on forced expiration Cardio: Jugular venous distension: no JVD GI: Inspection: normal to inspection GI Palp: No abdominal tenderness Skin: General skin exam: normal color Neuro: General: oriented to person, oriented to place and oriented to time Extrem: General: normal to inspection Other: positive edema lower extremities. he appears cyanotic from the mid perez down and says that this is been going on for the last year. Psych: Appearance: grossly normal Results Laboratory Findings 08/31/24 04:46 08/31/24 04:46 Abnormal lab findings: Abnormal Labs 08/30/24 08/30/24 08/31/24 11:20 11:26 04:46 WBC 10.8 H 10.8 H RDW 15.4 H 15.4 H MPV 10.6 H Glucose 140 H Hemoglobin A1c 6.3 H Calcium 8.3 L 8.3 L AST 67 H ALT 89 H Total Protein 6.0 L Albumin 3.2 L Diagnostic Findings Additional studies: Impression: No evidence of pulmonary embolus, aortic dissection, or aortic aneurysm. Moderate bilateral pleural effusions with minimal interstitial edema.
--- NOTE | 2024-08-31 11:22 | PM.PNCARD ---
Progress Note: A&P Assessment and Plan (1) Acute exacerbation of CHF (congestive heart failure): Qualifiers: Heart failure type: unspecified Qualified Code(s): I50.9 - Heart failure, unspecified Code(s): I50.9 - Heart failure, unspecified Status: Inactive (2) HTN (hypertension): Code(s): I10 - Essential (primary) hypertension Status: Acute (3) Elevated troponin: Code(s): R79.89 - Other specified abnormal findings of blood chemistry Status: Inactive Plan 54-year-old man with prior history of methamphetamine use presents with worsening shortness of breath Shortness of breath -likely secondary to acute decompensated heart failure -TTE shows reduced LV function with EF 25 - 30% -Can shift to p.o. lasix 40mg daily -Start GDMT with Entresto and spironolactone. Continue ToprolXL -Check BMP in a.m. - if BMP stable he can discharge tomorrow Hypertension -controlled on metoprolol succinate 50 mg p.o. daily Troponin elevation -most likely demand in setting of acute decompensated heart failure Recommendations and plan discussed with hospitalist Subjective Date/time seen: 08/31/24 11:22 Interval history: Cardiology follow up visit Feels well today. Denies shortness of breath, chest pain, orthopnea, swelling. Review of Systems Cardiovascular: Cardiovascular: Reports as per HPI Respiratory: Respiratory: Reports as per HPI Exam Const: General: comfortable HENMT: Mouth: Yes moist mucous membranes Eyes: EOM: EOMs intact bilaterally Neck: Neck: no JVD Resp: Effort & Inspection: normal respiratory effort Auscultation: clear to auscultation bilaterally and diminished lung sounds Cardio: Rate: regular rate Rhythm: regular rhythm Extrem: General: normal to inspection Objective Data Vital Signs Vital Signs: Vital Signs - 24 hr 08/30/24 11:33 08/30/24 12:00 08/30/24 12:05 Temperature 36.4 C L Pulse Rate 82 90 92 Respiratory Rate 20 Blood Pressure 136/102 H Pulse Oximetry 96 Oxygen Delivery Oxygen Flow Rate 08/30/24 14:00 08/30/24 15:39 08/30/24 16:00 Temperature 36.6 C Pulse Rate 86 91 91 Respiratory Rate 16 Blood Pressure 118/88 Pulse Oximetry 93 Oxygen Delivery Oxygen Flow Rate 08/30/24 16:00 08/30/24 20:00 08/30/24 20:00 Temperature Pulse Rate 111 H Respiratory Rate Blood Pressure Pulse Oximetry 94 96 Oxygen Delivery Nasal Cannula Nasal Cannula Oxygen Flow Rate 2 2 08/30/24 20:11 08/30/24 22:00 08/31/24 00:00 Temperature 36.6 C Pulse Rate 107 H 105 H Respiratory Rate 18 Blood Pressure 124/96 H Pulse Oximetry 93 93 Oxygen Delivery Nasal Cannula Oxygen Flow Rate 1 08/31/24 00:00 08/31/24 00:40 08/31/24 02:00 Temperature 36.4 C Pulse Rate 93 93 94 Respiratory Rate 18 Blood Pressure 135/65 Pulse Oximetry 94 Oxygen Delivery Oxygen Flow Rate 08/31/24 04:00 08/31/24 04:00 08/31/24 05:03 Temperature 36.8 C Pulse Rate 94 96 Respiratory Rate 20 Blood Pressure 136/93 H Pulse Oximetry 95 94 Oxygen Delivery Room Air Oxygen Flow Rate 08/31/24 06:00 08/31/24 07:41 08/31/24 09:10 Temperature 36.4 C L Pulse Rate 98 99 107 H Respiratory Rate 20 Blood Pressure 146/95 H Pulse Oximetry 94 Oxygen Delivery Oxygen Flow Rate Intake/Output Intake/Output: Intake & Output 08/28/24 08/29/24 08/30/24 08/31/24 23:59 23:59 23:59 23:59 Intake Total 480 1270 Output Total 1300 700 Balance -820 570 Meds/Results Medications: Active Medications Generic Name Dose Route Start Last Admin Trade Name Freq PRN Reason Stop Dose Admin Enoxaparin Sodium 40 mg 08/31/24 09:00 08/31/24 09:11 Enoxaparin 40 Mg/0.4 Ml Syringe SUB-Q 40 mg DAILY PIERRE Administration Furosemide 40 mg 08/31/24 09:00 08/31/24 09:10 Furosemide Inj 40 Mg/4 Ml Vial IV PUSH 40 mg BID PIERRE Administration Metoclopramide HCl 5 mg 08/30/24 15:53 Metoclopramide Hcl Inj 10 Mg/2 Ml Vial IV PUSH Q6HR PRN Nausea And Vomiting Metoprolol Succinate 50 mg 08/31/24 09:00 08/31/24 09:10 Metoprolol Succinate Ext Rel 50 Mg Tabcr PO 50 mg DAILY PIERRE Administration Pantoprazole Sodium 40 mg 08/31/24 09:00 08/31/24 09:11 Pantoprazole Sodium Iv 40 Mg Vial IV PUSH 40 mg QAM PIERRE Administration Perflutren Lipid Microsphere 0 ml 08/30/24 15:55 Perflutren Lipid Microspheres 1.5 Ml Vial Diluted To 10 Ml Total Volume IV PUSH 09/02/24 15:55 ONCE PRN adequate visualization Protocol Potassium Chloride 20 meq 08/31/24 09:00 08/31/24 09:10 Potassium Chloride 20 Meq Er Tablet PO 20 meq DAILY PIERRE Administration Labs Labs: Laboratory Results - last 24 hr 08/30/24 08/30/24 08/30/24 11:20 11:26 14:10 WBC 10.8 H RBC 4.84 Hgb 14.1 Hct 42.7 MCV 88.2 MCH 29.1 MCHC 33.0 RDW 15.4 H Plt Count 240 MPV 10.6 H Sodium 138 Potassium 4.0 Chloride 105 Carbon Dioxide 28 Anion Gap 5 BUN 16 Creatinine 0.83 Estim Creat Clear Calc 99 Estimated GFR > 60 Glucose 140 H Hemoglobin A1c 6.3 H Calcium 8.3 L Total Bilirubin AST ALT Alkaline Phosphatase Troponin I 0.027 Total Protein Albumin Triglycerides 113 Cholesterol 113 LDL Cholesterol Direct 66 HDL Direct 36 TSH (Reflex) 0.485 Urine Opiates Screen Negative Oral Fld Codeine GC/MS Oral Fl Buprenorphine Scrn Urine Methadone Screen Negative Oral Fl Tapentadol LCGCMS Ur Barbiturates Screen Negative Ur Phencyclidine Scrn Negative Ur Amphetamine Screen Negative U Benzodiazepines Scrn Negative Urine Cocaine Screen Negative U Cannabinoids Screen Negative 08/30/24 08/31/24 16:32 04:46 WBC 10.8 H RBC 4.81 Hgb 14.0 Hct 42.4 MCV 88.1 MCH 29.1 MCHC 33.0 RDW 15.4 H Plt Count 244 MPV 10.3 Sodium 140 Potassium 3.8 Chloride 104 Carbon Dioxide 30 Anion Gap 6 BUN 19 Creatinine 1.01 Estim Creat Clear Calc 80 Estimated GFR > 60 Glucose 83 Hemoglobin A1c Calcium 8.3 L Total Bilirubin 0.8 AST 67 H ALT 89 H Alkaline Phosphatase 83 Troponin I 0.024 Total Protein 6.0 L Albumin 3.2 L Triglycerides Cholesterol LDL Cholesterol Direct HDL Direct TSH (Reflex) Urine Opiates Screen Oral Fld Codeine GC/MS Cancelled Oral Fl Buprenorphine Scrn Cancelled Urine Methadone Screen Oral Fl Tapentadol LCGCMS Cancelled Ur Barbiturates Screen Ur Phencyclidine Scrn Ur Amphetamine Screen U Benzodiazepines Scrn Urine Cocaine Screen U Cannabinoids Screen
--- NOTE | 2024-08-31 13:13 | IVDEFINITY ---
Prior to administration of IV Definity the patient was educated on the risks and benefits of the imaging enhancing agent including potential adverse side effects. The patient verbalized understanding. Allergies were verified. No exclusion criteria were identified and at least one of the following inclusion criteria were met: 1) physician request, 2) patient technically difficult to image (per the [place] [employer] guidelines of two or more segments not discernable within the apical view), or 3) questionable left ventricular function. ?
--- NOTE | 2024-08-31 17:15 | P.PNIM_ITS ---
Progress Note: A&P Assessment and Plan (1) Acute exacerbation of CHF (congestive heart failure): Qualifiers: Heart failure type: unspecified Qualified Code(s): I50.9 - Heart failure, unspecified Code(s): I50.9 - Heart failure, unspecified Status: Inactive (2) Elevated troponin: Code(s): R79.89 - Other specified abnormal findings of blood chemistry Status: Inactive (3) Mold exposure: Code(s): Z77.120 - Contact with and (suspected) exposure to mold (toxic) Status: Acute (4) HTN (hypertension): Code(s): I10 - Essential (primary) hypertension Status: Acute Plan Non ST elevation HI -Not on any risk reduction medication including statins or HTN medications -Will add statin, ASA after HbA1c and Lipid profile -Continue metoprolol 50mg PO QD -Cardiology consulted -Echocardiogram EF 20-25% -Endorse illicit drug use -UDS NEGATIVE -Reviewed EKG ,CTA NEGATIVE FOR PE, moderate pleural effusion with minimal inerstitial edema -Trend Troponin 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 -High Resolution CT after r/o cardiac cause -Pulm evaluated and recommended patient discontinuing meth and marijuana and also move of the mold infected house and then treat the mold and painting Drug abuse Patient counseled about cessation of Meth and Marijuana DVT: enoxaparin Subjective Date/time seen: 08/31/24 17:15 Interval history: comfortable at bedside EF 20-25%, started on Entresto and Spironolactone per cards Review of Systems Review of Systems: All systems reviewed & are unremarkable except as noted in HPI and below Exam Narrative: Const: well nourished O rientation/conscio usness: patient or iented x3 Limitat ions: no limitatio ns HENMT: Head: normal to in spection Ears: ex ternal ears normal Face/Nose/Sinus: Normal external n ose present Eyes: Conjunctivae: conj unctivae normal P upils: Equal, roun d and reactive pup ils present EOM: EOMs intact bilate rally Neck: Neck: normal visua l inspection Chest: Chest palpation & inspection: normal inspection of the chest Resp: Effort & Inspectio n: abnormal respir atory effort, labo red, no retraction s, tachypneic and no use of accessor y muscles Auscult ation: not clear t o auscultation joana aterally, no crack les, rales, rhonch i, no wheezes, alem ath sounds present and diminished michael ng sounds Cardio: Rate: tachycardic Rhythm: regular r hythm Heart sound s: no murmurs GI: Inspection: non-di stended GI Palp: Yes Soft to palpat ion and No Tendern ess to palpation p resent (GI) Auscu ltation: normal vikki wel sounds : General: Yes bladd er normal to palpa tion Back/Spine/Pelvis: Back: no CVA tende rness Skin: General skin exam: normal color Germain hes: no rashes Wo unds: no wounds Neuro: General: patient o riented x3 Crania l nerves: Yes Nyst agmus not present Speech: normal sp eech Extrem: General: normal to inspection Psych: Mental Status: men gray status grossly normal Affect: n ormal affect Atti tude: cooperative Objective Data Vital Signs Vital Signs: Vital Signs - 24 hr 08/30/24 20:00 08/30/24 20:00 08/30/24 20:11 Temperature 97.9 F Pulse Rate 111 H 107 H Respiratory Rate 18 Blood Pressure 124/96 H Pulse Oximetry 96 93 Oxygen Delivery Nasal Cannula Oxygen Flow Rate 2 08/30/24 22:00 08/31/24 00:00 08/31/24 00:00 Temperature Pulse Rate 105 H 93 Respiratory Rate Blood Pressure Pulse Oximetry 93 Oxygen Delivery Nasal Cannula Oxygen Flow Rate 1 08/31/24 00:40 08/31/24 02:00 08/31/24 04:00 Temperature 97.6 F Pulse Rate 93 94 Respiratory Rate 18 Blood Pressure 135/65 Pulse Oximetry 94 95 Oxygen Delivery Room Air Oxygen Flow Rate 08/31/24 04:00 08/31/24 05:03 08/31/24 06:00 Temperature 98.2 F Pulse Rate 94 96 98 Respiratory Rate 20 Blood Pressure 136/93 H Pulse Oximetry 94 Oxygen Delivery Oxygen Flow Rate 08/31/24 07:41 08/31/24 08:00 08/31/24 08:00 Temperature 97.5 F L Pulse Rate 99 111 H Respiratory Rate 20 Blood Pressure 146/95 H Pulse Oximetry 94 92 Oxygen Delivery Room Air Oxygen Flow Rate 08/31/24 09:10 08/31/24 10:00 08/31/24 11:55 Temperature 97.3 F L Pulse Rate 107 H 106 H 98 Respiratory Rate 28 H Blood Pressure 137/93 H Pulse Oximetry 97 Oxygen Delivery Oxygen Flow Rate 08/31/24 12:00 08/31/24 12:00 08/31/24 16:00 Temperature Pulse Rate 103 H 105 H Respiratory Rate Blood Pressure Pulse Oximetry 90 Oxygen Delivery Room Air Oxygen Flow Rate Intake/Output Intake/Output: Intake & Output 08/28/24 08/29/24 08/30/24 08/31/24 23:59 23:59 23:59 23:59 Intake Total 480 1270 Output Total 1300 700 Balance -820 570 Meds/Results Medications: Active Medications Generic Name Dose Route Start Last Admin Trade Name Freq PRN Reason Stop Dose Admin Enoxaparin Sodium 40 mg 08/31/24 09:00 08/31/24 09:11 Enoxaparin 40 Mg/0.4 Ml Syringe SUB-Q 40 mg DAILY PIERRE Administration Furosemide 40 mg 08/31/24 09:00 08/31/24 09:10 Furosemide Inj 40 Mg/4 Ml Vial IV PUSH 40 mg BID PIERRE Administration Metoclopramide HCl 5 mg 08/30/24 15:53 Metoclopramide Hcl Inj 10 Mg/2 Ml Vial IV PUSH Q6HR PRN Nausea And Vomiting Metoprolol Succinate 50 mg 08/31/24 09:00 08/31/24 09:10 Metoprolol Succinate Ext Rel 50 Mg Tabcr PO 50 mg DAILY PIERRE Administration Pantoprazole Sodium 40 mg 08/31/24 09:00 08/31/24 09:11 Pantoprazole Sodium Iv 40 Mg Vial IV PUSH 40 mg QAM PIERRE Administration Potassium Chloride 20 meq 08/31/24 09:00 08/31/24 09:10 Potassium Chloride 20 Meq Er Tablet PO 20 meq DAILY PIERRE Administration Sacubitril/Valsartan 1 tab 08/31/24 21:00 Sacubitril/Valsartan 24-26 Mg Tablet PO Q12HR PIERRE Spironolactone 25 mg 09/01/24 09:00 Spironolactone 25 Mg Tablet PO QAM [facility] Labs Labs: Laboratory Results - last 24 hr 08/30/24 08/30/24 08/31/24 11:20 16:32 04:46 WBC 10.8 H RBC 4.81 Hgb 14.0 Hct 42.4 MCV 88.1 MCH 29.1 MCHC 33.0 RDW 15.4 H Plt Count 244 MPV 10.3 Sodium 140 Potassium 3.8 Chloride 104 Carbon Dioxide 30 Anion Gap 6 BUN 19 Creatinine 1.01 Estim Creat Clear Calc 80 Estimated GFR > 60 Glucose 83 Hemoglobin A1c 6.3 H Calcium 8.3 L Total Bilirubin 0.8 AST 67 H ALT 89 H Alkaline Phosphatase 83 Total Protein 6.0 L Albumin 3.2 L Oral Fld Codeine GC/MS Cancelled Oral Fl Buprenorphine Scrn Cancelled Oral Fl Tapentadol LCGCMS Cancelled
[2024-08-31] MEDS: SACUBITRIL/VALSARTAN 24-26 MG TABLET 1 TAB PO (20:41)
[2024-09-01] VITALS: PULSE 94
[2024-09-01] MEDS: ACETAMINOPHEN 325 MG TABLET 650 MG PO (02:25)
[2024-09-01 04:00] VITALS: PULSE 89
[2024-09-01 05:03] LABS: Basophils Percent Auto 0.3 % (0.2-1.2); Eosinophils Absolute Auto 0.4 K/mm3 (0-0.3); Eosinophils Percent Auto 3.5 % (0-4.4); Hematocrit 41.5 % (42.0-52.0); Hemoglobin 13.8 g/dL (14.0-18.0); Immature Granulocyte Absolute 0.03 K/mm3 (0.00-0.031); Immature Granulocyte Percent A 0.3 % (0-0.5); Lymphocytes Absolute Auto 1.52 K/mm3 (0.9-3.2); Lymphocytes Percent Auto 13.8 % (18.3-44.2); Mean Corpuscular HGB Conc 33.3 g/dl (32-36); Mean Corpuscular Volume 87.2 fl (80-100); Mean Platelet Volume 10.4 fl (7.4-10.4); Monocytes Absolute Auto 1.2 K/mm3 (0.1-0.6); Monocytes Percent Auto 11.3 % (2.6-8.5); Neutrophils Absolute Auto 7.8 K/mm3 (1.3-6.7); Neutrophils Percent Auto 70.8 % (45.5-73.1); Platelet Count Result 239 k/mm3 (150-375); Red Blood Count 4.76 M/mm3 (4.6-6.20)
[2024-09-01 05:16] LABS: Alanine Aminotransferase 71 U/L (6-50); Albumin Level 3.1 g/dL (3.5-5.1); Alkaline Phosphatase 72 U/L (38-126); Anion Gap 6 mmol/L (4-12); Aspartate Amino Transferase 48 U/L (17-59); Bilirubin,Total 0.9 mg/dL (0.2-1.3); Blood Urea Nitrogen 19 mg/dL (9-20); Calcium 8.3 mg/dL (8.4-10.2); Carbon Dioxide 29 mmol/L (22-30); Chloride 104 mmol/L (98-107); Estimated CRCL calculation 81 ml/min; Estimated Glomerular Filt Rate > 60; Glucose 103 mg/dL (65-110); Lactic Acid Reflex 0.9 mmol/L (0.7-2.0); Magnesium 1.9 mg/dL (1.6-2.3); Potassium 3.6 mmol/L (3.4-5.0); Sodium 139 mmol/L (137-145)
[2024-09-01 07:29] LABS: Immunoglobulin A 283 mg/dL (47-310); Immunoglobulin G 943 mg/dL (600-1640); Immunoglobulin M 118 mg/dL (50-300)
[2024-09-01 08:00] VITALS: PULSE 80
[2024-09-01 08:24] VITALS: BP 138/86; PULSE 83; RESP 18; TEMP 36.5; O2SAT 90
[2024-09-01] MEDS: PANTOPRAZOLE SODIUM IV 40 MG VIAL IV PUSH (09:06)
[2024-09-01] MEDS: ENOXAPARIN 40 MG/0.4 ML SYRINGE SUB-Q (09:06)
[2024-09-01] MEDS: FUROSEMIDE INJ 40 MG/4 ML VIAL IV PUSH (09:06)
[2024-09-01 09:07] VITALS: PULSE 82
[2024-09-01] MEDS: SACUBITRIL/VALSARTAN 24-26 MG TABLET 1 TAB PO (09:07)
[2024-09-01] MEDS: POTASSIUM CHLORIDE 20 MEQ ER TABLET PO (09:07)
[2024-09-01] MEDS: SPIRONOLACTONE 25 MG TABLET PO (09:07)
[2024-09-01] MEDS: METOPROLOL SUCCINATE EXT REL 50 MG TABCR PO (09:07)
[2024-09-01 12:00] VITALS: PULSE 91
--- NOTE | 2024-09-01 12:35 | P.DS_ITS ---
DS: Admitting Diagnosis Discharge Date 09/01/24 Admitting Diagnosis SOB DS: Discharge Diagnosis Discharge Diagnosis (1) Cardiomyopathy: Code(s): I42.9 - Cardiomyopathy, unspecified Status: Acute DS: Summary Hospital Course Hospital Course: 54 M with no significant PMHx visited [facility] ED on 08/03 for shortness of breath associated with cough. UDS screen was positive for THC and amphetamines. CTA showed no evidence of PE. His BNP was 6426 was discharged with the possible diagnosis of CHF versus methamphetamine abuse pneumonia. Patient was discharged with Lasix and potassium and advised to follow-up with cardiology. Patient again visited [facility] ED on 08/29/2024 due to shortness of breath. His troponin was elevated. Consulted [facility] hospitalist and associate dean who accepted the admission. EHCO was obtained which showed EF 20-25%, cardiology was consulted and deemed that it is likely drug induced. Recommended Entresto, Spironolactone, Lasix 40mg daily and Metoprolol 50mg daily. to follow up outpatient. Pulmonology evaluated for Mold exposure and recommended staying away from the mold infested home and treating the mold at home. 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 -High Resolution CT after r/o cardiac cause -Pulm evaluated and recommended patient discontinuing meth and marijuana and also move of the mold infected house and then treat the mold and painting Drug abuse Patient counseled about cessation of Meth and Marijuana Time Spent with Patient Time attestation: Total time spent providing and/or coordinating discharge services: DS: Data Data Completed and Pending Labs on day of discharge: Labs from last 24 hours 09/01/24 08/30/24 04:56 16:32 WBC 11.0 H RBC 4.76 Hgb 13.8 L Hct 41.5 L MCV 87.2 MCH 29.0 MCHC 33.3 RDW 15.0 H Plt Count 239 MPV 10.4 Immature Gran % (Auto) 0.3 Neut % (Auto) 70.8 Lymph % (Auto) 13.8 L [place] % (Auto) 11.3 H Eos % (Auto) 3.5 Baso % (Auto) 0.3 Lymph # (Auto) 1.52 [place] # (Auto) 1.2 H Eos # (Auto) 0.4 H Baso # (Auto) 0.0 Abs Immat Gran (auto) 0.03 Absolute Neuts (auto) 7.8 H Absolute Nucleated RBC 0.000 Nucleated RBC % 0.0 Sodium 139 Potassium 3.6 Chloride 104 Carbon Dioxide 29 Anion Gap 6 BUN 19 Creatinine 0.98 Estim Creat Clear Calc 81 Estimated GFR > 60 Glucose 103 Lactic Acid 0.9 Calcium 8.3 L Magnesium 1.9 Total Bilirubin 0.9 AST 48 ALT 71 H Alkaline Phosphatase 72 Total Protein 6.0 L Albumin 3.1 L Immunoglobulin A 283 Immunoglobulin G 943 Immunoglobulin M 118 Discharge Plan Discharge Attending physician on discharge: Kirk Kelly Consulting providers: Darrel Prado; Castro Pruett Discharging Clinician: Kirk Kelly Anticipated Discharge Date/Time: 09/01/24 12:32 Patient Disposition: Home, Self-Care Activity: as tolerated Diet: heart healthy Patient Instructions: Antibiotic Form Patient Language: Mongolian Stand Alone Forms: General Discharge Information Follow-up/Referrals: Darrel Prado MD [Physician] - (F/u with cardiology as instructed ) Damian,AMALIA Varma [Primary Care Provider] - (F/u with PCP in 3-5 days ) Discharge Medications: New sacubitril-valsartan [Entresto] 24-26 mg Tablet 1 tab PO Q12HR 30 Days Qty: 30 1RF spironolactone 25 mg Tablet 25 mg PO QAM 30 Days Qty: 30 1RF Continued potassium chloride 20 mEq tablet,ER particles/crystals 20 meq PO DAILY Qty: 7 0RF metoprolol succinate 50 mg tablet extended release 24 hr 50 mg PO DAILY 30 Days Qty: 30 1RF Changed furosemide [Lasix] 20 mg tablet 40 mg PO DAILY 30 Days Qty: 60 1RF Date of admission: 08/30/24 16:51 Primary Care Provider: DamianKojo Admitting Provider: Pedrito Gunderson Attending physician on admission: Pedrito Gunderson Condition: Improved
--- NOTE | 2024-09-02 06:14 | P.CDI_ITS ---
CDI Query Clarification Request CHF has been documented in progress note as Progress Note: A&P Assessment and Plan (1) Acute exacerbation of CHF (congestive heart failure): Qualifiers: Heart failure type: unspecified Qualified Code(s): I50.9 - Heart failure, unspecified Code(s): I50.9 - Heart failure, unspecified Status: Inactive Plan 54-year-old man with prior history of methamphetamine use presents with worsening shortness of breath Shortness of breath -likely secondary to acute decompensated heart failure -TTE shows reduced LV function with EF 25 - 30% -Can shift to p.o. lasix 40mg daily -Start GDMT with Entresto and spironolactone. Continue ToprolXL -Check BMP in a.m. - if BMP stable he can discharge tomorrow Discharge summary states His BNP was 6426 was discharged with the possible diagnosis of CHF versus methamphetamine abuse pneumonia. BNP on 08/29 6093 Treatment: Lasix 40 mg IV daily 08/30-08/31, then changed to BID. Pleas clarify if CHF was ruled in or ruled out on admission. If ruled in please clarify type and acuity of CHF if known. Acuity: * Acute * Chronic * Acute and Chronic * Unable to determine * Other Type: * Systolic * Diastolic * Systolic and Diastolic * Other * Unknown <Connie Zacarias RN - Last Filed: 09/02/24 06:23> Clarified Diagnosis Clarified Diagnosis: * Acute and Chronic systolic CHF <Kirk Kelly MD - Last Filed: 09/02/24 09:19>
[2024-09-08 12:19] LABS: Aspergillus fumigatus NEGATIVE (NEGATIVE)
== END 2024-09-01 13:37 | disposition home or self-care (01) | DRG 205 ==
PROVIDERS: Admitting Provider General Practice; PCP Physician Assistant; Visit Provider Internal Medicine
DX: I42.8 Other cardiomyopathies (principal); I11.0 Hypertensive heart disease with heart failure; I50.23 Acute on chronic systolic (congestive) heart failure; I24.89 Other forms of acute ischemic heart disease; Z77.120 Contact with and (suspected) exposure to mold (toxic); F15.10 Other stimulant abuse, uncomplicated; F12.10 Cannabis abuse, uncomplicated; Z87.891 Personal history of nicotine dependence
CPT/HCPCS: 36415; 80048; 80053; 80061; 80307; 82784; 83036; 83605; 83735; 84443; 84484; 85025; 85027; A9270; C8929; J1650; J1940; J2470; Q9957